=== PATIENT | male | born 1975 | race Caucasian/White ===

== ENCOUNTER → 2021-12-22 | Outpatient (CLI) | payer OTHER ==
[~2021-12-22] MED LIST: BARIUM SULFATE 0.1% SUSPENSION 450 ML BOTTLE ONE; IOHEXOL 350 MG/ML 100 ML VIAL ONE; SODIUM CHLORIDE 0.9% 100 ML ONE
== END | disposition home or self-care (01) ==
LOC: RADMN 09:10
PROVIDERS: ATTEND Nurse Practitioner Family
DX: K76.0 Fatty (change of) liver, not elsewhere classified (principal); J98.11 Atelectasis; R10.9 Unspecified abdominal pain; Z90.49 Acquired absence of other specified parts of digestive tract
CPT/HCPCS: 74177; Q9967; J7050